=== PATIENT | male | born 1960 | race African-American/Black ===

== ENCOUNTER 2019-02-17 15:51 | Inpatient (IN) | payer MEDICAID ==
[~2019-02-17] VITALS: Ht 184.9 cm; Wt 81.7 kg
[2019-02-17] MEDS ORDERED: FERR325T6 PO (15:58)
[2019-02-17] MEDS ORDERED: IBUP-2030 PO (15:58)
[2019-02-17] MEDS ORDERED: THIA100T13 PO (15:58)
[2019-02-17] MEDS ORDERED: KETOROLAC 60MG/2ML VIAL IM ONE (18:45)
[2019-02-17 19:25] LABS: HEMATOCRIT. 24.2 % (42.0-52.0); HEMOGLOBIN. 7.4 g/dL (14.0-18.0); MEAN CORPUSCULAR HEMOGLOBIN 20.4 pg (28.0-32.0); MEAN CORPUSCULAR VOLUME 66.3 fL (80.0-94.0); MEAN PLATELET VOLUME 7.3 fl (7.4-10.4); PLATELET 495 x1000/uL (130-400); RED BLOOD CELL COUNT 3.65 mill/uL (4.7-6.1); RED CELL DISTRIBUTION WIDTH 24.4 % (11.6-14.6)
[2019-02-17 19:30] LABS: CHLORIDE 106 mEq/L (98-107)
[2019-02-17 19:33] LABS: PARTIAL THROMBOPLASTIN TIME 26.6 sec (23.4-31.0)
[2019-02-17] MEDS ORDERED: SODIUM CHLORIDE 0.9% 1,000 ML IV ONE (20:00)
[2019-02-17 20:18] LABS: PLATELET ESTIMATE INCREASED
[2019-02-17] MEDS ORDERED: ONDANSETRON HCL 4MG/2ML INJ IV PRN (21:00)
[2019-02-17] MEDS ORDERED: NA PHOS,M-B/NA PHOS,DI-BA ENEMA 118ML PR PRN (21:00)
[2019-02-17] MEDS ORDERED: HYDRALAZINE HCL 10MG TABLET PO PRN (21:00)
[2019-02-17] MEDS ORDERED: ACETAMINOPHEN 325MG TABLET PO PRN (21:00)
[2019-02-17] MEDS ORDERED: GUAIFENESIN 200MG/10ML SUGAR FREE UDC PO PRN (21:00)
[2019-02-17] MEDS ORDERED: IPRATROPIUM/ALBUTEROL 0.5-3(2.5)MG/3ML NEB INH PRN (21:00)
[2019-02-17] MEDS ORDERED: MAGNESIUM/ALUMINUM HYDROXIDE/SIMETHICONE 30ML UDC PO PRN (21:00)
[2019-02-17] MEDS ORDERED: DOCUSATE SODIUM 100MG CAPSULE PO PRN (21:00)
[2019-02-17] MEDS ORDERED: LORAZEPAM 2MG/ML CPJ IV PRN (21:00)
[2019-02-17] MEDS ORDERED: DIPHENHYDRAMINE 50MG/ML VIAL IV PRN (21:00)
[2019-02-17] MEDS ORDERED: CLONIDINE 0.1MG TABLET PO PRN (21:00)
[2019-02-17] MEDS ORDERED: HYDROMORPHONE HCL/PF 2MG/ML CPJ IV PRN (21:30)
[2019-02-17 22:45] VITALS: BP 145/83
[2019-02-18] VITALS (10 sets, daily range): BP systolic 124–170; BP diastolic 55–93
[2019-02-18] MEDS: HYDROCODONE/ACETAMINOPHEN 10/325MG TABLET PO PRN
[2019-02-18 08:15] LABS: HEMATOCRIT. 21.5 % (42.0-52.0); MEAN CORPUSCULAR HEMOGLOBIN 19.7 pg (28.0-32.0); MEAN CORPUSCULAR VOLUME 66.2 fL (80.0-94.0); MEAN PLATELET VOLUME 7.5 fl (7.4-10.4); PLATELET 442 x1000/uL (130-400); RED BLOOD CELL COUNT 3.26 mill/uL (4.7-6.1); RED CELL DISTRIBUTION WIDTH 24.4 % (11.6-14.6)
[2019-02-18 08:33] LABS: HEMOGLOBIN. 6.4 g/dL (14.0-18.0)
[2019-02-18 09:10] LABS: CHLORIDE 109 mEq/L (98-107)
[2019-02-18 09:27] LABS: T4 FREE 0.72 ng/dL (0.76-1.46)
[2019-02-18] MEDS ORDERED: SIMETHICONE 40 MG/0.6 ML 30ML ONE (10:42)
[2019-02-18] MEDS ORDERED: BACTERIOSTATIC SODIUM CHLORIDE 0.9% 30ML VIAL IJ ONE (10:42)
[2019-02-18] MEDS: PANTOPRAZOLE SODIUM 40 MG/VIAL IV SCH (12:00)
[2019-02-18] MEDS ORDERED: FENTANYL CITRATE/PF 50MCG/ML 2ML VIAL ONE (15:32)
[2019-02-18] MEDS ORDERED: MIDAZOLAM HCL 5 MG/5 ML VIAL ONE (15:32)
[2019-02-18] MEDS ORDERED: MIDAZOLAM HCL 5 MG/5 ML VIAL IV PRN (16:53)
[2019-02-18] MEDS ORDERED: FENTANYL CITRATE/PF 50MCG/ML 2ML VIAL IV PRN (16:55)
[2019-02-18 17:15] LABS: HEMATOCRIT. 26.7 % (42.0-52.0); MEAN CORPUSCULAR HEMOGLOBIN 20.3 pg (28.0-32.0); MEAN CORPUSCULAR VOLUME 67.4 fL (80.0-94.0); MEAN PLATELET VOLUME 7.8 fl (7.4-10.4); PLATELET 437 x1000/uL (130-400); RED BLOOD CELL COUNT 3.95 mill/uL (4.7-6.1); RED CELL DISTRIBUTION WIDTH 24.1 % (11.6-14.6)
[2019-02-18 17:24] LABS: TOTAL IRON BINDING CAPACITY 460 ug/dL (250-450)
[2019-02-18 17:40] LABS: FOLIC ACID (FOLATE) SERUM 16.8 ng/mL (>5.38)
[2019-02-18] MEDS: SODIUM CHLORIDE 0.9% INJ 3ML FLUSH IVF SCH (22:11)
[2019-02-19] VITALS: BP 138/83
[2019-02-19] MEDS: PANTOPRAZOLE SODIUM 40 MG/VIAL IV SCH ×2 (00:09→12:02)
[2019-02-19 02:27] LABS: PLATELET ESTIMATE SLIGHTLY INCREASED
[2019-02-19 03:30] LABS: PLATELET ESTIMATE SLIGHTLY INCREASED
[2019-02-19 04:00] VITALS: BP 136/89
[2019-02-19] MEDS: SODIUM CHLORIDE 0.9% INJ 3ML FLUSH IVF SCH (06:05)
[2019-02-19 08:00] VITALS: BP 137/82
[2019-02-19 08:31] LABS: HEMATOCRIT. 27.3 % (42.0-52.0); HEMOGLOBIN. 8.5 g/dL (14.0-18.0); MEAN CORPUSCULAR HEMOGLOBIN 21.1 pg (28.0-32.0); MEAN CORPUSCULAR VOLUME 67.6 fL (80.0-94.0); PLATELET 449 x1000/uL (130-400); RED BLOOD CELL COUNT 4.04 mill/uL (4.7-6.1)
[2019-02-19 08:49] LABS: CHLORIDE 101 mEq/L (98-107)
[2019-02-19 09:19] LABS: PLATELET ESTIMATE SLIGHTLY INCREASED
[2019-02-19 12:00] VITALS: BP 138/81
[2019-02-19 12:00] LABS: HEMATOCRIT 26.2 % (42.0-52.0); HEMOGLOBIN 8.1 g/dL (14.0-18.0)
[2019-02-19] MEDS: HYDROCODONE/ACETAMINOPHEN 10/325MG TABLET PO PRN (12:17)
[2019-02-19] MEDS ORDERED: SORBITOL 70% SOLN 30ML PO SCH ×2 (16:00→20:00)
[2019-02-19 16:05] VITALS: BP 138/81
== END 2019-02-19 16:26 | disposition home or self-care (01) | DRG 241 ==
LOC: ER 15:51 → EDBEDREQTM 20:17 → EDBEDREQ 20:17 → ENRESERV 21:16 → 6EST 22:39
PROVIDERS: ADMIT Internal Medicine; ATTEND Internal Medicine
PROC: 30233N1 Transfusion of Nonautologous Red Blood Cells into Peripheral Vein, Percutaneous Approach (ICD-10-PCS; principal; 2019-02-18)
PROC: 0DJ08ZZ Inspection of Upper Intestinal Tract, Via Natural or Artificial Opening Endoscopic (ICD-10-PCS; 2019-02-18)
DX: K29.61 Other gastritis with bleeding (principal); E44.1 Mild protein-calorie malnutrition; D50.9 Iron deficiency anemia, unspecified; F17.210 Nicotine dependence, cigarettes, uncomplicated; G89.29 Other chronic pain; Z79.899 Other long term (current) drug therapy
CPT/HCPCS: 36415; 71045; 80048; 82607; 82728; 82746; 83540; 83550; 84439; 84443; 85014; 85018; 86850; 86900; 86920; 88305; 88313; 93005; 99152; 99285; C9113; J1885; J2250; J3010; J3490; J7030; J7040; P9016; G0500

== ENCOUNTER 2019-05-10 15:41 | Inpatient (IN) | payer MEDICAID ==
[~2019-05-10] VITALS: Ht 172.7 cm; Wt 59.1 kg
[~2019-05-10 15:41] MED LIST: FERR325T6 PO; IBUP-2030 PO; THIA100T13 PO
[2019-05-10] MEDS ORDERED: ONDANSETRON HCL 4MG/2ML INJ IV STA (16:27)
[2019-05-10] MEDS ORDERED: MORPHINE SULFATE 4 MG/ML CPJ (NOT FOR IM USE) IV STA (16:27)
[2019-05-10] MEDS ORDERED: SODIUM CHLORIDE 0.9% 1,000 ML IV ONE (16:27)
[2019-05-10] MEDS ORDERED: PANTOPRAZOLE SODIUM 40 MG/VIAL IV ONE (16:30)
[2019-05-10] MEDS ORDERED: FOLIC ACID 1 MG, THIAMINE HCL 100 MG, MVI, ADULT NO.1 10 ML in DEXTROSE 5% WATER 1,000 ML IV ONE ×4 (16:30)
[2019-05-10 17:04] LABS: HEMOGLOBIN. 7.5 g/dL (14.0-18.0); MEAN CORPUSCULAR HEMOGLOBIN 23.5 pg (28.0-32.0); MEAN CORPUSCULAR VOLUME 72.5 fL (80.0-94.0); MEAN PLATELET VOLUME 7.8 fl (7.4-10.4); PLATELET 274 x1000/uL (130-400); RED BLOOD CELL COUNT 3.18 mill/uL (4.7-6.1); RED CELL DISTRIBUTION WIDTH 27.3 % (11.6-14.6)
[2019-05-10 17:08] LABS: CHLORIDE 106 mEq/L (98-107)
[2019-05-10 17:10] LABS: PARTIAL THROMBOPLASTIN TIME 27.4 sec (23.4-31.0)
[2019-05-10 17:25] LABS: PLATELET ESTIMATE NORMAL
[2019-05-10 17:44] LABS: ETHANOL BLOOD 338 mg/dL
[2019-05-10 18:18] LABS: CLARITY URINE CLEAR (CLEAR); COLOR URINE YELLOW (YELLOW); KETONES URINE NEGATIVE (NEGATIVE); LEUKOCYTE ESTERASE URINE NEGATIVE (NEGATIVE); NITRITE URINE NEGATIVE (NEGATIVE); OCCULT BLOOD URINE NEGATIVE (NEGATIVE); PROTEIN URINE NEGATIVE (NEGATIVE); SPECIFIC GRAVITY URINE 1.009 (1.005-1.030); UROBILINOGEN URINE 0.2 E.U./dL (0.2-1.0)
[2019-05-10 18:29] LABS: *AMPHETAMINES SCREEN URINE NEGATIVE (NEGATIVE); *BARBITURATES SCREEN URINE NEGATIVE (NEGATIVE)
[2019-05-10 18:30] LABS: *BENZODIAZEPINES SCREEN URINE NEGATIVE (NEGATIVE); *COCAINE SCREEN URINE NEGATIVE (NEGATIVE); CANNABINOID URINE SCREEN NEGATIVE (NEGATIVE); METHADONE URINE SCREEN NEGATIVE (NEGATIVE); OPIATES URINE SCREEN NEGATIVE (NEGATIVE); PHENCYCLIDINE URINE SCREEN NEGATIVE (NEGATIVE)
[2019-05-10] MEDS ORDERED: PANTOPRAZOLE 80 MG in SODIUM CHLORIDE 0.9% 100 ML IV SCH ×2 (20:30→23:00)
[2019-05-10 21:05] LABS: HEMATOCRIT. 25.1 % (42.0-52.0); MEAN CORPUSCULAR HEMOGLOBIN 23.4 pg (28.0-32.0); MEAN CORPUSCULAR VOLUME 72.9 fL (80.0-94.0); MEAN PLATELET VOLUME 7.5 fl (7.4-10.4); PLATELET 284 x1000/uL (130-400); RED BLOOD CELL COUNT 3.44 mill/uL (4.7-6.1); RED CELL DISTRIBUTION WIDTH 27.8 % (11.6-14.6)
[2019-05-10 21:26] LABS: PLATELET ESTIMATE NORMAL
[2019-05-11] VITALS (10 sets, daily range): BP systolic 129–149; BP diastolic 80–92
[2019-05-11] MEDS ORDERED: LORAZEPAM 2MG/ML CPJ IV PRN ×2 (07:30→20:00)
[2019-05-11] MEDS ORDERED: HYDROCODONE/ACETAMINOPHEN 5/325MG TABLET PO PRN (07:30)
[2019-05-11] MEDS ORDERED: FOLIC ACID 1 MG, THIAMINE HCL 100 MG, MVI, ADULT NO.1 10 ML in DEXTROSE 5% WATER 1,000 ML IV NR ×4 (09:00)
[2019-05-11] MEDS: DEXT 5%/0.45% NACL 1000ML 1,000 ML IV SCH ×2 (09:41→20:19)
[2019-05-11 12:00] LABS: HEMATOCRIT. 23.7 % (42.0-52.0); HEMOGLOBIN. 7.5 g/dL (14.0-18.0); MEAN CORPUSCULAR HEMOGLOBIN 22.9 pg (28.0-32.0); MEAN CORPUSCULAR VOLUME 72.3 fL (80.0-94.0); MEAN PLATELET VOLUME 7.4 fl (7.4-10.4); PLATELET 274 x1000/uL (130-400); RED BLOOD CELL COUNT 3.28 mill/uL (4.7-6.1); RED CELL DISTRIBUTION WIDTH 26.7 % (11.6-14.6)
[2019-05-11 12:06] LABS: CHLORIDE 106 mEq/L (98-107)
[2019-05-11 12:29] LABS: PLATELET ESTIMATE NORMAL
[2019-05-11] MEDS ORDERED: SORBITOL 70% SOLN 30ML PO NR ×2 (17:45→21:00)
[2019-05-11] MEDS ORDERED: METOCLOPRAMIDE HCL 10MG/2ML VIAL IV NR ×2 (17:45→23:00)
[2019-05-11] MEDS: MORPHINE SULFATE 2 MG/ML CPJ (NOT FOR IM USE) IV PRN (20:18)
[2019-05-12] VITALS (15 sets, daily range): BP systolic 116–157; BP diastolic 62–104
[2019-05-12] MEDS ORDERED: SORBITOL 70% SOLN 30ML PO NR (05:00)
[2019-05-12] MEDS: DEXT 5%/0.45% NACL 1000ML 1,000 ML IV SCH ×2 (05:42→13:30)
[2019-05-12] MEDS: MORPHINE SULFATE 2 MG/ML CPJ (NOT FOR IM USE) IV PRN ×3 (05:57→23:05)
[2019-05-12 06:14] LABS: CHLORIDE 101 mEq/L (98-107)
[2019-05-12 06:30] LABS: HEMATOCRIT. 24.2 % (42.0-52.0); HEMOGLOBIN. 7.7 g/dL (14.0-18.0); MEAN CORPUSCULAR VOLUME 72.2 fL (80.0-94.0); MEAN PLATELET VOLUME 8.6 fl (7.4-10.4); PLATELET 298 x1000/uL (130-400); RED BLOOD CELL COUNT 3.36 mill/uL (4.7-6.1); RED CELL DISTRIBUTION WIDTH 26.8 % (11.6-14.6)
[2019-05-12] MEDS ORDERED: PROPOFOL 200MG/20ML VIAL IV ONE ×2 (13:12→13:28)
[2019-05-12] MEDS ORDERED: HYDROMORPHONE HCL/PF 2MG/ML CPJ IV PRN (13:30)
[2019-05-12] MEDS ORDERED: ONDANSETRON HCL 4MG/2ML INJ IV PRN (13:30)
[2019-05-12] MEDS ORDERED: LABETALOL 5MG/ML SYR 20 MG/4 ML SYRINGE IV PRN (13:30)
[2019-05-12] MEDS ORDERED: MEPERIDINE HCL/PF 25MG/ML CPJ IV PRN (13:30)
[2019-05-12 14:13] LABS: PLATELET ESTIMATE NORMAL
[2019-05-13] VITALS (10 sets, daily range): BP systolic 111–156; BP diastolic 61–90
[2019-05-13] MEDS ORDERED: OMEPRAZOLE 20MG CAPSULE EXTENDED RELEASE PO SCH (09:00)
[2019-05-13] MEDS: MORPHINE SULFATE 2 MG/ML CPJ (NOT FOR IM USE) IV PRN (09:34)
[2019-05-13 11:39] LABS: TOTAL IRON BINDING CAPACITY 401 ug/dL (250-450)
[2019-05-13 11:48] LABS: HEMATOCRIT. 26.3 % (42.0-52.0); HEMOGLOBIN. 8.3 g/dL (14.0-18.0); MEAN CORPUSCULAR HEMOGLOBIN 22.9 pg (28.0-32.0); MEAN CORPUSCULAR VOLUME 72.9 fL (80.0-94.0); MEAN PLATELET VOLUME 8.6 fl (7.4-10.4); PLATELET 318 x1000/uL (130-400); RED BLOOD CELL COUNT 3.61 mill/uL (4.7-6.1); RED CELL DISTRIBUTION WIDTH 26.3 % (11.6-14.6)
[2019-05-13 20:08] LABS: NUCLEATED RED BLOOD CELLS 1 /100 WBC; PLATELET ESTIMATE NORMAL
== END 2019-05-13 17:40 | disposition home or self-care (01) | DRG 241 ==
LOC: ER 17:08 → EDBEDREQ 20:23 → EDBEDREQTM 20:23 → EDBEDREQSVC 20:23 → 5EST 20:26 → EDBEDREQTM 20:29 → EDBEDREQ 20:29 → ENRESERV 22:26
PROVIDERS: ADMIT Internal Medicine; ATTEND Internal Medicine
PROC: 0DJD8ZZ Inspection of Lower Intestinal Tract, Via Natural or Artificial Opening Endoscopic (ICD-10-PCS; principal; 2019-05-12)
DX: K29.61 Other gastritis with bleeding (principal); E87.2 Acidosis; D62 Acute posthemorrhagic anemia; M87.9 Osteonecrosis, unspecified; F10.229 Alcohol dependence with intoxication, unspecified; Y90.8 Blood alcohol level of 240 mg/100 ml or more; K64.9 Unspecified hemorrhoids; M19.90 Unspecified osteoarthritis, unspecified site; G89.29 Other chronic pain; M25.552 Pain in left hip; M25.551 Pain in right hip; F17.210 Nicotine dependence, cigarettes, uncomplicated; T39.315A Adverse effect of propionic acid derivatives, initial encounter; Y92.89 Other specified places as the place of occurrence of the external cause; Z79.1 Long term (current) use of non-steroidal anti-inflammatories (NSAID); Z71.6 Tobacco abuse counseling
CPT/HCPCS: 36415; 71045; 74176; 80048; 80305; 80320; 81003; 82728; 83540; 83550; 83605; 83735; 83880; 84443; 84484; 86850; 86900; 93005; 99285; C9113; J2060; J2270; J2405; J2704; J2765; J3411; J3490; J7030; J7050; J7070; G0480

== ENCOUNTER 2019-10-12 14:23 | Emergency (ER) | payer MEDICAID ==
[~2019-10-12] VITALS: Ht 175.3 cm; Wt 80.0 kg
[2019-10-12] MEDS ORDERED: ACETAMINOPHEN WITH CODEINE 300/30MG TABLET PO STA (15:07)
[2019-10-12 16:25] LABS: HEMATOCRIT. 28.6 % (42.0-52.0); HEMOGLOBIN. 8.8 g/dL (14.0-18.0); MEAN CORPUSCULAR HEMOGLOBIN 21.6 pg (28.0-32.0); MEAN CORPUSCULAR VOLUME 70.6 fL (80.0-94.0); MEAN PLATELET VOLUME 8.1 fl (7.4-10.4); PLATELET 432 x1000/uL (130-400); RED BLOOD CELL COUNT 4.06 mill/uL (4.7-6.1); RED CELL DISTRIBUTION WIDTH 20.3 % (11.6-14.6)
[2019-10-12 16:29] LABS: CHLORIDE 103 mEq/L (98-107)
[2019-10-12 17:07] LABS: PLATELET ESTIMATE INCREASED
[2019-10-12 19:30] VITALS: BP 132/90
== END 2019-10-12 20:21 | disposition home or self-care (01) ==
LOC: ER 14:23
DX: D53.9 Nutritional anemia, unspecified (principal)
CPT/HCPCS: 36415; 80053; 85025; 86850; 86900; 93005; 99284